=== PATIENT | female | born 1955 | race Caucasian/White ===

== ENCOUNTER 2016-09-24 17:26 | Emergency (ER) | payer MEDICAID ==
[~2016-09-24] VITALS: Ht 154.9 cm; Wt 93.0 kg
[~2016-09-24 17:26] MED LIST: ASPI325T2 PO; BACL10TA PO; BACL20TA PO; CEFU500T PO; DULO60CA41 PO; FURO-149 PO; GABA-331 PO; GABA-531 PO; GLUXR500 PO; HYDR-914 PO; ISOS60TA PO; NITR0.4T13 SL; OMEP20CA10 PO; OXYB5TAB PO; PARO40TA80 PO; PHEDM120 PO; POTA-118 PO; PREG75CA PO; RANI150T8 PO
[2016-09-24 17:55] VITALS: BP 137/73; PULSE 72; RESP 17; TEMP 97.7; O2SAT 97
== END 2016-09-24 19:17 | disposition left against medical advice (07) ==
LOC: SED 17:26
DX: M79.604 Pain in right leg (principal); R42 Dizziness and giddiness; R20.2 Paresthesia of skin; F17.210 Nicotine dependence, cigarettes, uncomplicated; E11.9 Type 2 diabetes mellitus without complications; Z86.79 Personal history of other diseases of the circulatory system; Z79.82 Long term (current) use of aspirin; Z53.20 Procedure and treatment not carried out because of patient's decision for unspecified reasons
CPT/HCPCS: 99281

== ENCOUNTER 2018-02-21 11:01 | Emergency (ER) | payer MEDICAID ==
[~2018-02-21] VITALS: Ht 154.9 cm; Wt 91.2 kg
[~2018-02-21 11:01] MED LIST changes: -BACL10TA PO; -FURO-149 PO; -GABA-331 PO; -NITR0.4T13 SL; -OMEP20CA10 PO; -OXYB5TAB PO; -PARO40TA80 PO; -POTA-118 PO; -RANI150T8 PO
[2018-02-21 11:15] VITALS: BP_SYST 145
[2018-02-21] MEDS ORDERED: KETOROLAC TROMETHAMINE 60 MG/2 ML VIAL IM ONE (11:30)
[2018-02-21] MEDS ORDERED: fentaNYL CITRATE/PF 100 MCG/2 ML AMP IM ONE (11:30)
[2018-02-21] MEDS ORDERED: ONDANSETRON 4 MG ODT TAB PO ONE ×2 (11:30)
[2018-02-21 12:24] VITALS: BP_SYST 138
== END 2018-02-21 12:24 | disposition home or self-care (01) ==
LOC: SED 11:01
DX: M54.30 Sciatica, unspecified side (principal); F17.210 Nicotine dependence, cigarettes, uncomplicated; M79.7 Fibromyalgia; M19.90 Unspecified osteoarthritis, unspecified site; E11.9 Type 2 diabetes mellitus without complications; Z86.79 Personal history of other diseases of the circulatory system; Z79.82 Long term (current) use of aspirin; Z71.6 Tobacco abuse counseling; Z96.652 Presence of left artificial knee joint; Z79.899 Other long term (current) drug therapy; Z90.49 Acquired absence of other specified parts of digestive tract
CPT/HCPCS: 96372; 99284; J1885; J3010; Q0162

== ENCOUNTER 2019-08-22 15:32 | Emergency (ER) | payer MEDICAID ==
[~2019-08-22] VITALS: Ht 149.9 cm; Wt 96.2 kg
[~2019-08-22 15:32] MED LIST changes: +ASPI-858 PO; -ASPI325T2 PO
[2019-08-22 15:53] VITALS: BP_SYST 153
--- NOTE | 2019-08-22 17:15 | NUR ---
Patient to ER bed 4 to gown for evaluation. Side rails up.
--- NOTE | 2019-08-22 17:25 | NUR ---
Patient presented to ER left knee & ankle pain. Patient A&Ox4, skin pink and warm , wheel chair to ER, pain 8/10, left knee swelling, left ankle swelling, pulses bilat palapable, nausea, denies V/D. Patient states she slipped at [place] on icecream, FOOSHED landing in both knees and elbows, denies hitting head, senies head trauma.
--- NOTE | 2019-08-22 17:28 | NUR ---
ER Dr. Pablo at bedside examining patient.
[2019-08-22] MEDS ORDERED: HYDROcodone/ACETAMIN 5-325 MG TAB (NORCO/ VICODIN) PO ONE (17:45)
--- NOTE | 2019-08-22 19:00 | NUR ---
Patient given written and verbal discharge instructions and verbalizes understanding. ER MD discussed with patient the results and treatment provided. Patient in stable condition. ID arm band removed. No Rx given. Patient educated on pain management and to follow up with PMD. Pain Scale 2/10 tolerable for patient. Opportunity for questions provided and answered. Medication side effect fact sheet provided.
[2019-08-22 19:10] VITALS: BP_SYST 149
== END 2019-08-22 19:10 | disposition home or self-care (01) ==
LOC: SED 15:32
DX: S93.401A Sprain of unspecified ligament of right ankle, initial encounter (principal); S80.01XA Contusion of right knee, initial encounter; E11.9 Type 2 diabetes mellitus without complications; M19.90 Unspecified osteoarthritis, unspecified site; Z86.73 Personal history of transient ischemic attack (TIA), and cerebral infarction without residual deficits; Z79.82 Long term (current) use of aspirin; Z79.899 Other long term (current) drug therapy; W18.39XA Other fall on same level, initial encounter; Y93.89 Activity, other specified; Y92.89 Other specified places as the place of occurrence of the external cause; Y99.8 Other external cause status
CPT/HCPCS: 72040-TC; 73564; 99283

== ENCOUNTER 2019-10-16 18:56 | Emergency (ER) | payer MEDICAID ==
[~2019-10-16] VITALS: Ht 152.4 cm; Wt 90.7 kg
[2019-10-16 19:00] VITALS: BP_SYST 146
[2019-10-16] MEDS ORDERED: ASPIRIN 81 MG TAB.CHEW PO ONE (19:30)
[2019-10-16 20:00] LABS: BASOPHILS # (AUTO) 0.1 K/uL (0.0-0.2); BASOPHILS % (AUTO) 0.8 % (0.0-2.0); EOSINOPHILS # (AUTO) 0.4 K/uL (0.0-0.4); EOSINOPHILS % (AUTO) 3.7 % (0.0-4.0); HEMOGLOBIN 13.1 g/dL (12.0-16.0); LYMPHOCYTES # (AUTO) 3.7 K/uL (1.0-5.5); LYMPHOCYTES % (AUTO) 36.5 % (20.5-51.5); MEAN CORPUSCULAR HEMOGLOBIN 29 pg (27-31); MEAN CORPUSCULAR HGB CONC 33 % (32-36); MEAN CORPUSCULAR VOLUME 87 fL (79.0-98.0); MONOCYTES % (AUTO) 9.7 % (1.7-9.3); NEUTROPHILS % (AUTO) 49.3 % (40.0-70.0); PLATELET COUNT (AUTO) 279 K/uL (130-430); RED CELL DISTRIBUTION WIDTH 14.7 % (9.0-15.0); WHITE BLOOD COUNT (AUTO) 10.1 K/uL (4.8-10.8)
[2019-10-16 20:12] LABS: CALCIUM 8.6 mg/dL (8.4-11.0); CREATININE 0.81 mg/dL (0.55-1.30); POTASSIUM 3.6 mmol/L (3.5-5.1)
[2019-10-16 20:19] LABS: ALBUMIN 3.1 g/dL (3.4-4.8); TOTAL BILIRUBIN 0.2 mg/dL (0.0-1.0)
[2019-10-16] MEDS ORDERED: IPRATROPIUM/ALBUTEROL SULFATE 3 ML AMPUL.NEB (DUONEB) INH ONE (20:45)
[2019-10-16] MEDS ORDERED: NITROGLYCERIN 0.4 MG TAB.SUBL SL ONE (20:45)
[2019-10-16] MEDS ORDERED: MORPHINE 4 MG/ML INJ. SYRINGE IVP ONE (21:30)
[2019-10-17 00:41] VITALS: BP_SYST 123
== END 2019-10-17 00:41 | disposition short-term general hospital (02) ==
LOC: SED 18:56
DX: R07.89 Other chest pain (principal); R06.02 Shortness of breath; E10.40 Type 1 diabetes mellitus with diabetic neuropathy, unspecified; M19.90 Unspecified osteoarthritis, unspecified site; Z86.73 Personal history of transient ischemic attack (TIA), and cerebral infarction without residual deficits; Z79.899 Other long term (current) drug therapy; Z79.82 Long term (current) use of aspirin
CPT/HCPCS: 36415; 71045; 80053; 82550; 82962; 83880; 84484; 85025; 85379; 86710; 93005; 94640; 96374; 99285; J2270

== ENCOUNTER 2020-05-21 18:43 | Emergency (ER) | payer MEDICAID ==
[~2020-05-21] VITALS: Ht 154.9 cm; Wt 52.2 kg
[2020-05-21 18:55] VITALS: BP_SYST 152
--- NOTE | 2020-05-21 18:57 | NUR ---
Patient to ER bed 02 to gown for evaluation. Side rails up.
--- NOTE | 2020-05-21 19:20 | NUR ---
Note navdeep in EDM - 05/21/20 at 1938 by [email or web address] PT PRESENTS FROM HOME WITH C/O BITE ON RIGHT THUMB FROM HER BIRD THAT HAPPENED AROUND NOON. SOME REDNESS NOTED AND PT REPORTS PAIN WITH MOVEMENT. STATES SHE IS DIABETIC. NO SWELLING OR DRAINAGE. AAOX4, V/S STABLE
[2020-05-21] MEDS ORDERED: MUPIROCIN 2% TOPICAL OINTMENT 22 GM TP ONE (19:30)
[2020-05-21] MEDS ORDERED: SULFAMETHOXAZOLE/TRIMETHOPR DS 1 TABLET PO ONE (19:30)
[2020-05-21] MEDS ORDERED: DIPH-TET-PERTUS Vaccine 0.5 ML VIAL (ADACEL) I.M. ONE (19:30)
[2020-05-21] MEDS ORDERED: cephALEXin 500 MG CAPSULE PO ONE (19:30)
--- NOTE | 2020-05-21 19:30 | NUR ---
ER HEARING AID FITTER SVITLANA GOINS AT THE BEDSIDE EVLUATING PT
--- NOTE | 2020-05-21 19:38 | NUR ---
PT PRESENTS FROM HOME WITH C/O BITE ON RIGHT 5TH DIGIT FROM HER BIRD THAT HAPPENED AROUND NOON. SOME REDNESS NOTED AND PT REPORTS PAIN WITH MOVEMENT. STATES SHE IS DIABETIC. NO SWELLING OR DRAINAGE. AAOX4, V/S STABLE
--- NOTE | 2020-05-21 20:05 | NUR ---
PT PROVIDED WITH FINGER SPLINT TO RIGHT 5TH DIGIT, PT TOLERATED WELL
--- NOTE | 2020-05-21 20:13 | NUR ---
Patient given written and verbal discharge instructions and verbalizes understanding. ER MD discussed with patient the results and treatment provided. Patient in stable condition. ID arm band removed. Rx of BACTRIM, TYLENOL EXTRA STRENGTH, AUGMENTIN, MUPIROCIN OINTMENT given. Patient educated on pain management and to follow up with PMD. Pain Scale 2/10. Opportunity for questions provided and answered. Medication side effect fact sheet provided.
[2020-05-21 20:15] VITALS: BP_SYST 147
== END 2020-05-21 20:15 | disposition home or self-care (01) ==
LOC: SED 18:43
DX: S61.451A Open bite of right hand, initial encounter (principal); L03.113 Cellulitis of right upper limb; M79.644 Pain in right finger(s); R03.0 Elevated blood-pressure reading, without diagnosis of hypertension; E11.9 Type 2 diabetes mellitus without complications; F17.210 Nicotine dependence, cigarettes, uncomplicated; Z79.84 Long term (current) use of oral hypoglycemic drugs; Z79.82 Long term (current) use of aspirin; Z79.899 Other long term (current) drug therapy; W61.91XA Bitten by other birds, initial encounter; Y93.89 Activity, other specified; Y92.89 Other specified places as the place of occurrence of the external cause; Y99.8 Other external cause status
CPT/HCPCS: 90715; 99283

== ENCOUNTER 2020-07-21 17:32 | Emergency (ER) | payer MEDICAID, SELFPAY ==
[~2020-07-21] VITALS: Ht 152.4 cm; Wt 74.8 kg
[2020-07-21 17:39] VITALS: BP_SYST 124
[2020-07-21 18:25] VITALS: BP_SYST 124
== END 2020-07-21 18:45 | disposition left against medical advice (07) ==
LOC: SED 17:32
DX: R05 Cough (principal); Z53.21 Procedure and treatment not carried out due to patient leaving prior to being seen by health care provider
CPT/HCPCS: 99281

== ENCOUNTER 2020-11-13 17:02 | Emergency (ER) | payer MEDICAID, SELFPAY ==
[~2020-11-13] VITALS: Ht 152.4 cm; Wt 95.3 kg
[2020-11-13 17:15] VITALS: BP_SYST 128
[2020-11-13] MEDS ORDERED: MECLIZINE HCL 25 MG TABLET (ANITVERT) PO ONE (17:30)
[2020-11-13 17:49] LABS: WHITE BLOOD COUNT (AUTO) 10.4 K/uL (4.8-10.8)
[2020-11-13 17:55] LABS: BASOPHILS # (AUTO) 0.1 K/uL (0.0-0.2); BASOPHILS % (AUTO) 0.8 % (0.0-2.0); EOSINOPHILS # (AUTO) 0.3 K/uL (0.0-0.4); EOSINOPHILS % (AUTO) 2.8 % (0.0-4.0); HEMATOCRIT 42.6 % (36-48); LYMPHOCYTES # (AUTO) 3.4 K/uL (1.0-5.5); LYMPHOCYTES % (AUTO) 32.6 % (20.5-51.5); MEAN CORPUSCULAR HEMOGLOBIN 28 pg (27-31); MEAN CORPUSCULAR HGB CONC 33 % (32-36); MEAN CORPUSCULAR VOLUME 86 fL (79.0-98.0); MONOCYTES # (AUTO) 0.9 K/uL (0.0-1.0); MONOCYTES % (AUTO) 8.3 % (1.7-9.3); NEUTROPHILS # (AUTO) 5.8 K/uL (1.8-7.7); NEUTROPHILS % (AUTO) 55.5 % (40.0-70.0); PLATELET COUNT (AUTO) 313 K/uL (130-430); RED BLOOD CELL COUNT(AUTO) 4.98 MIL/uL (4.2-6.2); RED CELL DISTRIBUTION WIDTH 14.5 % (9.0-15.0)
[2020-11-13 18:03] LABS: PROTHROMBIN TIME 9.8 SECS (9.5-12.5)
[2020-11-13 18:13] LABS: CALCIUM 8.1 mg/dL (8.4-11.0); POTASSIUM 3.3 mmol/L (3.5-5.1)
[2020-11-13 18:19] LABS: ALBUMIN 3.2 g/dL (3.4-4.8)
[2020-11-13 18:36] LABS: BILIRUBIN,URINE NEGATIVE (NEGATIVE); BLOOD, URINE 2+ (NEGATIVE); COLOR,URINE YELLOW (YELLOW); GLUCOSE,URINE NEGATIVE (NEGATIVE); KETONES,URINE NEGATIVE (NEGATIVE); LEUKOCYTE ESTERASE ,URINE NEGATIVE (NEGATIVE); NITRITE, URINE NEGATIVE (NEGATIVE); PROTEIN URINE NEGATIVE (NEGATIVE); UROBILINOGEN,URINE 0.2 (0.2-1.0)
[2020-11-13 18:37] LABS: TOTAL BILIRUBIN 0.1 mg/dL (0.0-1.0)
[2020-11-13 18:39] LABS: CLARITY/URINE SLIGHTLY HAZY (CLEAR)
[2020-11-13 18:53] LABS: BARBITURATE, URINE NEGATIVE (NEG <=200); BENZODIAZEPINE, URINE NEGATIVE (NEG <=150); CANNABINOID, URINE NEGATIVE (NEG <=50); COCAINE, URINE NEGATIVE (NEG <=150); METHAMPHETAMINES SCREEN,URINE NEGATIVE (NEG <=500); OPIATE, URINE POSITIVE (NEG <=100); PHENCYCLIDINE SCREEN,URINE NEGATIVE (NEG <=25); UR TRICYCLIC ANTIDEPRESSANTS NEGATIVE (NEG <=300); URINE AMPHETAMINE NEGATIVE (NEG <=500); URINE METHADONE NEGATIVE (NEG <=200); URINE OXYCODONE SCREEN NEGATIVE (NEG <=100); URINE PROPOXYPHENE SCREEN NEGATIVE (NEG <=300)
[2020-11-13 19:02] LABS: BACTERIA,URINE FEW /HPF (None Seen); WBC,URINE 0-3 /HPF (0-3)
[2020-11-13 19:07] VITALS: BP_SYST 154
[2020-11-13] MEDS ORDERED: MECL-160 PO (19:22)
[2020-11-13] MEDS ORDERED: POTASSIUM CHLORIDE 20 MEQ TAB.PRT.SR PO ONE (19:30)
== END 2020-11-13 19:07 | disposition home or self-care (01) ==
LOC: SED 17:02
DX: E87.6 Hypokalemia (principal); R42 Dizziness and giddiness; E11.9 Type 2 diabetes mellitus without complications; E07.9 Disorder of thyroid, unspecified; Z79.899 Other long term (current) drug therapy; Z79.82 Long term (current) use of aspirin; Z20.822 Contact with and (suspected) exposure to COVID-19
CPT/HCPCS: 36415; 70450; 76376; 80053; 80307; 81000; 84484; 85025; 85610; 85730; 87426; 93005; 99285; J8597

== ENCOUNTER 2022-03-05 21:54 | Emergency (ER) | payer MEDICAID ==
[~2022-03-05] VITALS: Ht 152.4 cm; Wt 85.3 kg
[~2022-03-05 21:54] MED LIST changes: -DULO60CA41 PO; +DULO60CA42 PO; +MECL-160 PO
[2022-03-05 22:12] VITALS: BP_SYST 181
--- NOTE | 2022-03-05 22:22 | NUR ---
Pt placed to ER waiting room in stable condition.
--- NOTE | 2022-03-05 23:26 | NUR ---
Pt LWBS. Daughter of pt states "we have been waiting too long and my mother is in a lot of pain and we are going somewhere else." Informed pt and family that there are no beds available at this time. Pt leaves ER waiting room with steady gait in NAD. Pt leaves with with daughter and family members.
== END 2022-03-05 22:26 | disposition left against medical advice (07) ==
LOC: SED 21:54
DX: M79.661 Pain in right lower leg (principal); M79.662 Pain in left lower leg; Z53.21 Procedure and treatment not carried out due to patient leaving prior to being seen by health care provider

== ENCOUNTER 2023-04-12 12:37 | Emergency (ER) | payer MEDICARE, MEDICAID ==
[~2023-04-12] VITALS: Ht 152.4 cm; Wt 86.2 kg
[~2023-04-12 12:37] MED LIST changes: -MECL-160 PO; +MECL-292 PO
[2023-04-12 12:39] VITALS: BP_SYST 140; PULSE 69; RESP 19; TEMP 97.2; O2SAT 96
[2023-04-12 15:48] VITALS: BP_SYST 140; PULSE 69; RESP 19; TEMP 97.2; O2SAT 96
== END 2023-04-12 15:47 | disposition left against medical advice (07) ==
LOC: SED 12:37
DX: R51.9 Headache, unspecified (principal); M79.10 Myalgia, unspecified site; R09.81 Nasal congestion; Z53.21 Procedure and treatment not carried out due to patient leaving prior to being seen by health care provider
CPT/HCPCS: 99281